=== PATIENT | female | born 1955 | race Two or more races ===

== ENCOUNTER 2019-04-23 18:50 | Emergency (ER) | payer OTHER ==
[~2019-04-23] VITALS: Ht 160 cm; Wt 59.9 kg
== END 2019-04-23 19:50 | disposition home or self-care (01) ==
LOC: ER 18:50
DX: S61.452A Open bite of left hand, initial encounter (principal); W54.0XXA Bitten by dog, initial encounter; Y93.89 Activity, other specified; Y92.018 Other place in single-family (private) house as the place of occurrence of the external cause; Y99.8 Other external cause status

== ENCOUNTER 2020-02-04 12:11 | Outpatient (CLI) | payer OTHER | END 2020-02-04 12:17 | disposition home or self-care (01) | LOC: LAB 12:11 | PROVIDERS: ATTEND Orthopaedic Surgery | DX: M85.88 Other specified disorders of bone density and structure, other site (principal); E55.9 Vitamin D deficiency, unspecified; E21.2 Other hyperparathyroidism; E88.89 Other specified metabolic disorders; E56.1 Deficiency of vitamin K ==

== ENCOUNTER 2020-03-23 10:38 | Outpatient (CLI) | payer OTHER | END 2020-03-23 12:00 | disposition home or self-care (01) | LOC: OFIC 805 10:38 | PROVIDERS: ATTEND Otolaryngology | DX: H93.13 Tinnitus, bilateral (principal); R42 Dizziness and giddiness ==

== ENCOUNTER 2020-03-26 11:24 | Outpatient (CLI) | payer OTHER | END 2020-03-26 12:00 | disposition home or self-care (01) | LOC: NUCLEAR 11:24 | PROVIDERS: ATTEND Internal Medicine | DX: G45.8 Other transient cerebral ischemic attacks and related syndromes (principal); I10 Essential (primary) hypertension; M54.5 Low back pain; Z01.810 Encounter for preprocedural cardiovascular examination; E03.8 Other specified hypothyroidism; E78.89 Other lipoprotein metabolism disorders; G62.89 Other specified polyneuropathies ==

== ENCOUNTER → 2020-04-14 11:52 | Outpatient (CLI) | payer OTHER | END | disposition home or self-care (01) | LOC: LAB 11:52 | PROVIDERS: ATTEND Dermatology | DX: D50.0 Iron deficiency anemia secondary to blood loss (chronic) (principal); Z13.0 Encounter for screening for diseases of the blood and blood-forming organs and certain disorders involving the immune mechanism; R89.1 Abnormal level of hormones in specimens from other organs, systems and tissues; E22.1 Hyperprolactinemia; R79.0 Abnormal level of blood mineral; Z13.29 Encounter for screening for other suspected endocrine disorder ==

== ENCOUNTER 2020-04-27 10:15 | Outpatient (CLI) | payer OTHER | END 2020-04-27 10:30 | disposition home or self-care (01) | LOC: OFIC 805 10:15 | PROVIDERS: ATTEND Otolaryngology | DX: M26.69 Other specified disorders of temporomandibular joint (principal); H93.12 Tinnitus, left ear; F41.8 Other specified anxiety disorders ==

== ENCOUNTER 2020-07-12 12:12 | Outpatient (CLI) | payer OTHER | END 2020-07-12 12:34 | disposition home or self-care (01) | LOC: LAB 12:12 | PROVIDERS: ATTEND Obstetrics & Gynecology Obstetrics | DX: N95.1 Menopausal and female climacteric states (principal); E78.00 Pure hypercholesterolemia, unspecified; N39.0 Urinary tract infection, site not specified; E20.8 Other hypoparathyroidism; E55.9 Vitamin D deficiency, unspecified; E03.8 Other specified hypothyroidism; E53.8 Deficiency of other specified B group vitamins; R10.2 Pelvic and perineal pain; R73.09 Other abnormal glucose; E78.01 Familial hypercholesterolemia; E72.11 Homocystinuria; R53.83 Other fatigue; R53.1 Weakness; E03.4 Atrophy of thyroid (acquired); I12.0 Hypertensive chronic kidney disease with stage 5 chronic kidney disease or end stage renal disease; R70.0 Elevated erythrocyte sedimentation rate ==

== ENCOUNTER 2020-07-22 17:30 | Emergency (ER) | payer OTHER ==
[~2020-07-22] VITALS: Ht 160 cm; Wt 57.6 kg
[2020-07-22] MEDS ORDERED: CLONAZEPAM0.25 MG PO (18:05)
[2020-07-22] MEDS ORDERED: DOLOGEN CAPLET1 EACH PO (20:28)
== END 2020-07-22 21:29 | disposition home or self-care (01) ==
LOC: ER 17:30
DX: B34.9 Viral infection, unspecified (principal); R50.9 Fever, unspecified; Z03.818 Encounter for observation for suspected exposure to other biological agents ruled out

== ENCOUNTER → 2020-10-27 09:50 | Outpatient (CLI) | payer OTHER ==
[~2020-10-27 09:50] MED LIST: CLONAZEPAM0.25 MG PO; DOLOGEN CAPLET1 EACH PO
== END | disposition home or self-care (01) ==
LOC: LAB 09:50
PROVIDERS: ATTEND Internal Medicine
DX: M45.5 Ankylosing spondylitis of thoracolumbar region (principal); I10 Essential (primary) hypertension; E78.9 Disorder of lipoprotein metabolism, unspecified; G62.9 Polyneuropathy, unspecified; H92.02 Otalgia, left ear; M25.561 Pain in right knee